=== PATIENT | female | born 1975 | race American Indian/Alaskan Native ===

== ENCOUNTER 2016-11-13 23:26 | Emergency (ER) | payer OTHER ==
[~2016-11-13] VITALS: Ht 170.2 cm; Wt 68.0 kg
[~2016-11-13 23:26] MED LIST: AVIANE1 EACH PO; BENTYL10 MG PO; CIPRO500 MG PO; CIPROFLOXACIN500 MG; CYCLOBENZAPRINE10 MG PO; DICYCLOMINE HCL10 MG PO; FERROUS GLUCON324 M1 PO; FLAGYL500 MG PO; GABAPENTIN300 MG PO; GOLYTELY SOLU4000 ML PO; HYDROCODON-ACE1 EA11 PO; HYDROCODON-ACE1 EAC8 PO; IBUPROFEN400 MG PO; IRON325 M1 PO; LOMOTIL TABLET1 EACH PO; LOPERAMIDE2 MG PO; MACROBID 100 M100 MG PO; METHOCARBAMOL750 MG PO; METRONIDAZOLE500 MG; MOTRIN800 MG PO; NORCO 10-325 T1 EACH PO; NORCO 5-325 TA1 EACH PO; ONDANSETRON HCL4 MG PO; PERCOCET 10-321 EACH PO; PERCOCET 5-3251 EACH PO; PREDNISONE20 MG PO; PROMETHAZINE HC25 M1 PO; PROZAC20 MG PO; ROBAXIN-750750 MG PO; SULFAZINE EC500 MG; TOPIRAMATE100 MG PO; VISTARIL25 MG PO; ZOFRAN ODT4 MG PO; ZOFRAN4 MG PO; [UNRECOGNIZED DRUG - OTHER]
[2016-11-14] MEDS ORDERED: TRAMADOL HCL50 MG PO (01:28)
== END 2016-11-14 01:50 | disposition home or self-care (01) ==
LOC: ED 23:26
DX: S30.0XXA Contusion of lower back and pelvis, initial encounter (principal); Z87.442 Personal history of urinary calculi; Z98.84 Bariatric surgery status; Z90.49 Acquired absence of other specified parts of digestive tract; Z88.0 Allergy status to penicillin; Z88.2 Allergy status to sulfonamides; Z98.890 Other specified postprocedural states; Z91.040 Latex allergy status; Z79.899 Other long term (current) drug therapy; V80.010A Animal-rider injured by fall from or being thrown from horse in noncollision accident, initial encounter
CPT/HCPCS: 72100; 72220; 99283

== ENCOUNTER 2017-03-03 21:42 | Emergency (ER) | payer OTHER ==
[~2017-03-03] VITALS: Ht 170.2 cm; Wt 68.0 kg
--- OUTSIDE RECORDS SUMMARY | ~2017-03-03 | XMS | Clinical Summary ---
Demographics + + + | Address | [address] | | | [place] [address] | + + + | Home Phone | | + + + | Preferred Language | Unknown | + + + | Marital Status | Single | + + + | Taoism Affiliation | PRE | + + + [...] Team Providers + +------+ + | Care Software Integrator Name | Role | Phone | + +------+ + PP | Unavailable | + +------+ + Source Comments [facility] is fully [facility] both [facility] and [facility] Allergies Not on File Current Medications Not [...]
[~2017-03-03 21:42] MED LIST changes: +TRAMADOL HCL50 MG PO
[2017-03-04] MEDS ORDERED: NORCO 5-325 TA1 EACH PO (00:56)
[2017-07-26] MEDS ORDERED: ALEVE220 M1 PO (21:26)
[2017-07-26] MEDS ORDERED: KETOROLAC TROME10 MG PO (21:29)
== END 2017-03-04 01:19 | disposition home or self-care (01) ==
LOC: ED 21:42
DX: K08.89 Other specified disorders of teeth and supporting structures (principal); Z87.442 Personal history of urinary calculi; Z90.49 Acquired absence of other specified parts of digestive tract; Z98.890 Other specified postprocedural states; Z98.84 Bariatric surgery status; Z91.040 Latex allergy status; Z88.0 Allergy status to penicillin; Z88.2 Allergy status to sulfonamides; Z88.5 Allergy status to narcotic agent
CPT/HCPCS: 99283

== ENCOUNTER 2017-03-31 07:15 | Day surgery (SDC) | payer OTHER ==
[~2017-03-31] VITALS: Ht 170.2 cm; Wt 72.6 kg
[2017-03-31] MEDS ORDERED: NUCYNTA50 MG PO (11:08)
--- NOTE | 2017-03-31 11:43 | NUR ---
03/31/17 1143 Nano Amor 1105 PT ARRIVED IN PACU VERY SLEEPY. 1115 CRYO CUFF PLACED ON R SHOULDER. PT C/O PAIN. UNABLE TO RATE. 1126 FENTANYL 25MCG GIVEN IV. 1132 PT CONTINUES TO GRIMACE AND C/O PAIN. FENTANYL 25MCG GIVEN IV. 1140 REU. NO GRIMACING NOTED.
--- NOTE | 2017-03-31 13:12 | NUR ---
[id number]: PT ARRIVES TO DS ROOM 5 VIA STRETCHER. FAMILY IN ROOM AT TIME OF REPORT. FAMILY LEFT TO RUN ERRANDS AND WILL RETURN FOR PT RIDE. LE 1210: PT PROVIDED ICE WATER, GRAPE JUICE, CRACKERS, JELLO AND PUDDING. PT TOLERATED WELL WITH NO COMPLAINTS OF NAUSEA. CALL LIGHT WITHIN REACH. LE 1245: GAVE REPORT TO AB LINTON AND PT CARE HANDED OFF AT THIS TIME.
--- NOTE | 2017-03-31 14:51 | NUR ---
LE 1304: IN TO CHECK ON PT, PT RESTING IN BED. AWAKENS EASILY. VITALS OBTAINED. ATTEMPT TO GIVE ORDERED PAIN MEDICATION, EDUCATION GIVEN. PT CONCERNED ABOUT TAKING NUCYENTA DUE TO ADVERSE REACTION TO TRAMADOL. SPOKE WITH PHARMACIST AND NITESH MCGRAW TO GIVE NUCYENTA. PT NOTIFIED, RX GIVEN. PT REQUEST PUDDING, GIVEN. EGG NILES BERG ORDERED PER PT REQUEST. PT RESTING IN BED.
--- NOTE | 2017-03-31 14:55 | NUR ---
LE 1430: PT'S MOTHER ARRIVES, RX GIVEN FOR DELIVER TO PHARMACY. IN TO CHECK ON PT, PT AWAKE WATCHING TV. VITALS OBTAINED. WHEN ASKED ABOUT PAIN, PT STATES "IT'S OKAY." SODA AND CRACKERS GIVEN, PT WATCHING TV. NO FACIAL GREIMACE OR OUTWORD SIGNS OF PAIN. NO FURTHER NEEDS AT THIS TIME. PT ADVISED THAT SHE MEETS CRITERIA FOR DISCHARGE WHENEVER SHE IS READY. CALL LIGHT WITHIN REACH.
--- NOTE | 2017-04-01 08:16 | OR ---
[facility] [address] [place], [place] [address] Signed DATE OF OPERATION: 03/31/2017 SURGEON: Marisol Aldridge MD PREOPERATIVE DIAGNOSIS: Failed rotator cuff repair with loose hardware, right shoulder. POSTOPERATIVE DIAGNOSIS: Failed rotator cuff repair with loose hardware, right shoulder. PROCEDURE PERFORMED: Removal of hardware and revision rotator cuff repair, right. HEALTH CARE RECRUITER: Monica Edwards PA-C. Monica was present in critical positioning, retraction, and wound closure. ANESTHESIA: General. BLOOD LOSS: 75 mL. LABORATORIES: Negative Gram stain and cultures were obtained. BRIEF HISTORY: Jeni is a 41-year-old female, who presented to the office with pain in her shoulder. Radiographs showed the prior anchor from her rotator cuff repair to be loose. There was a little bit of a cavity around the anchor, which had pulled back and was partially in the subacromial space. Risks and benefits of operative treatment involving removal cultures and probable repeat repair were discussed with her at length. I did not feel an MRI was necessary secondary to the fact that it would not change our approach to this problem. We did discuss a mini-open repair. Risks, benefits, and alternatives were discussed with her at length and she understood and wished to proceed. DESCRIPTION OF PROCEDURE: Once consent was obtained, she was taken to the operating room. After adequate anesthesia, she was placed in a beach-chair position. All downside pressure points well padded. The right shoulder was prepped and draped in a standard sterile fashion. The Electronically Signed By: MARISOL ALDRIDGE MD 04/01/17 0816 PATIENT NAME: JENI KILGORE OPERATIVE REPORT DATE OF : 75 PHYSICIAN: MARISOL ALDRIDGE MD REPORT #: [id number] REPORT IS CONFIDENTIAL AND NOT TO BE RELEASED WITHOUT AUTHORIZATION [facility] [address] [place], [place] [address] Signed middle portal from her prior arthroscopy was then incised longitudinally, extended to about an inch and half long. This was carried through skin and subcutaneous tissue. The median raphae were then identified and was opened longitudinally. The subdeltoid bursa was encountered. It was quite thickened and was removed. Deep cultures were taken at this point. Gram stain again was negative. The anchor was immediately visible in the wound and was removed from the bone and the FiberTape that it was attached to. The FiberTape was initially left in position to allow retraction of the remaining rotator cuff. The remaining bursa was removed using the rongeurs. We then evaluated the tear. The cuff tissue was in good shape. There was a cavity where the anchor was placed and it was felt that she may have had a little bit of an extra reaction to the absorbable implant. We then elected to go ahead with a transosseous repair of the rotator cuff. Three labral tapes were placed using a tendon grasping suture and the remaining rotator cuff tear which was about 1.5 cm long. Three drill holes were then placed in the bone and brought out subcortically distally. The inferior loop of the LabralTape was then brought out through the bone holes and the rotator cuff was reduced down to its natural position and tied sequentially from posterior to anterior. The sutures were cut. The knots were buried. We then moved the shoulder. The rotator cuff repair was quite stable. We irrigated the wound copiously and closed the deltoid using 3-0 Vicryl for the subcutaneous tissue and 3-0 Prolene for the skin. Steri-Strips were applied. The wound was dressed with Mepilex Ag dressing and Opsite. She was awakened and taken to the recovery room in satisfactory condition. All sponge, needle, and instrument counts were correct. Marisol Aldridge MD BA/SKYLAL /[id number] Electronically Signed By: MARISOL ALDRIDGE MD 04/01/17 0816 PATIENT NAME: JENI KILGORE OPERATIVE REPORT DATE OF : 75 PHYSICIAN: MARISOL ALDRIDGE MD REPORT #: [id number] REPORT IS CONFIDENTIAL AND NOT TO BE RELEASED WITHOUT AUTHORIZATION
[2017-07-26] MEDS ORDERED: ALEVE220 M1 PO (21:26)
[2017-07-26] MEDS ORDERED: KETOROLAC TROME10 MG PO (21:29)
== END 2017-03-31 15:30 | disposition home or self-care (01) ==
LOC: DS 07:15 → OPS 07:15 → DS 09:15 → OPS 15:30
PROVIDERS: Specialist
PROC: 0LQ10ZZ Repair Right Shoulder Tendon, Open Approach (ICD-10-PCS; principal; 2017-03-31 09:15)
PROC: 2W5 Placement, Anatomical Regions, Removal (ICD-10-PCS; 2017-03-31 09:15)
DX: T84.428A Displacement of other internal orthopedic devices, implants and grafts, initial encounter (principal); M75.111 Incomplete rotator cuff tear or rupture of right shoulder, not specified as traumatic; M75.51 Bursitis of right shoulder; D64.9 Anemia, unspecified; J40 Bronchitis, not specified as acute or chronic; M19.90 Unspecified osteoarthritis, unspecified site; F32.9 Major depressive disorder, single episode, unspecified; K63.9 Disease of intestine, unspecified; Z88.2 Allergy status to sulfonamides; Z91.040 Latex allergy status; Z98.890 Other specified postprocedural states
CPT/HCPCS: 01630; 36415; 64415; 76942; 84703; 87070; 87075; 87205; J0690; J1100; J2250; J2405; J2704; J2795; J3010; J7120

== ENCOUNTER 2017-04-04 05:30 | Emergency (ER) | payer OTHER, MEDICAID ==
[~2017-04-04] VITALS: Ht 170.2 cm; Wt 72.6 kg
--- OUTSIDE RECORDS SUMMARY | ~2017-04-04 | XMS | Clinical Summary ---
Demographics + + + | Address | [address] | | | [place] [address] | + + + | Home Phone | | + + + | Preferred Language | Unknown | + + + | Marital Status | Single | + + + | Synagogue Affiliation | PRE | + + + [...] | Unavailable | + + + Support +------+ +---------+ + | Name | Relationship | Address | Phone | +------+ +---------+ + ECON | Unknown | Unavailable | +------+ +---------+ + Care Team Providers + +------+ + | Care Bellstand Attendant Name | Role | Phone | + +------+ + PP | Unavailable | + +------+ + Source Comments [facility] is fully live on both [facility] and [facility]Patient.[facility] Allergies Not on File Current [...] | | | | (FLU SHOT) | 7 | | | + + + + + Results Not on filefrom Last 3 Months"
--- OUTSIDE RECORDS SUMMARY | ~2017-04-04 | XMS | Clinical Summary ---
Demographics + + + | Address | [address] | | | [place] [address] | + + + | Home Phone | | + + + | Preferred Language | Unknown | + + + | Marital Status | Single | + + + | Confucianist Affiliation | PRE | + + + [...] Team Providers + +------+ + | Care Screen Door Maker Name | Role | Phone | + +------+ + PP | Unavailable | + +------+ + Source Comments [facility] is fully live on both [facility] and [facility] InPatient.[facility] Allergies Not on File Current Medications Not [...]
[~2017-04-04 05:30] MED LIST changes: +NUCYNTA50 MG PO
[2017-07-26] MEDS ORDERED: ALEVE220 M1 PO (21:26)
[2017-07-26] MEDS ORDERED: KETOROLAC TROME10 MG PO (21:29)
== END 2017-04-04 06:22 | disposition home or self-care (01) ==
LOC: ED 05:30
DX: Z48.89 Encounter for other specified surgical aftercare (principal); Z88.0 Allergy status to penicillin; Z88.2 Allergy status to sulfonamides; Z88.5 Allergy status to narcotic agent; Z91.040 Latex allergy status
CPT/HCPCS: 99283

== ENCOUNTER → 2017-07-26 | Emergency (ER) | payer OTHER, MEDICAID ==
[~2017-07-26] VITALS: Ht 170.2 cm; Wt 72.6 kg
[~2017-07-26] MED LIST changes: +ALEVE220 M1 PO; +KETOROLAC TROME10 MG PO
== END ==
LOC: ED 21:12
DX: M25.511 Pain in right shoulder (principal); Z91.040 Latex allergy status; Z88.0 Allergy status to penicillin; Z88.2 Allergy status to sulfonamides; Z88.5 Allergy status to narcotic agent; Z98.890 Other specified postprocedural states
CPT/HCPCS: 73030; 96372; 99283; J1885

== ENCOUNTER 2017-11-22 02:08 | Emergency (ER) | payer OTHER, MEDICAID ==
[~2017-11-22] VITALS: Ht 170.2 cm; Wt 72.6 kg
--- OUTSIDE RECORDS SUMMARY | ~2017-11-22 | XMS | Clinical Summary ---
Demographics + + + | Address | [address] | | | [place] [address] | + + + | Home Phone | | + + + | Preferred Language | Unknown | + + + | Marital Status | Single | + + + | Bahai Affiliation | PRE | + + + | Race | or | + + + | Ethnic Group | Not or | + + + Author + + + | Author | [facility] | + + + | Organization | [facility] | + + + | Address | Unknown | + + + | Phone | Unavailable | + + + Support + + +---------+ + | Name | Relationship | Address | Phone | + + +---------+ + | NONE,NONE | ECON | Unknown | Unavailable | + + +---------+ + Care Team Providers + +------+ + | Care Stenographer Print Shop Name | Role | Phone | + +------+ + PP | Unavailable | + +------+ + Source Comments [facility] is fully live on both [facility] and [facility] InPatient.[facility] Allergies Not on File Current Medications Not on file Active Problems Not on file Social History + +-------+ +--------+------+ | Tobacco Use | Types | Packs/Day | Years | Date | | | | | Used | | + +-------+ +--------+------+ | Never Assessed | | | | | + +-------+ +--------+------+ + + + | Sex Assigned at | Date Recorded | | | | + + + | Not on file | | + + + Plan of Treatment + + + + + | Health Maintenance | Due Date | Last Done | Comments | + + + + + | INFLUENZA VACCINE | | | | | (FLU SHOT) | 8 | | | + + + + + Results Not on filefrom Last 3 Months Insurance + +--------+ +------+-------+---------+ | Payer | Benefi | Subscriber | Type | Phone | Address | | | t Plan | ID | | | | | | / | | | | | | | Group | | | | | + +--------+ +------+-------+---------+ | [employer] | FIRST | xxxxxxxxx | PPO | | | | | CHOICE | | | | | | | | | | | | | | HEALTH | | | | | + +--------+ +------+-------+---------+ + +--------+ +--------+ + + | Guarantor Name | Accoun | Relation to | Date | Phone | Billing Address | | | t Type | Patient | of | | | | | | | | | | + +--------+ +--------+ + + | JOHN KILGORE | Person | Self [birth year] | Home: | [address] | | | al/Fam | | 1976 | [phone] | [place] [address] | | | yenni | | | [address] | | + +--------+ +--------+ + +"
--- OUTSIDE RECORDS SUMMARY | ~2017-11-22 | XMS | Clinical Summary ---
Demographics + + + | Address | [address] | | | [place] [address] | + + + | Home Phone | | + + + | Preferred Language | Unknown | + + + | Marital Status | Single | + + + | Congregation Affiliation | PRE | + + + [...] Team Providers + +------+ + | Care Crtts Name | Role | Phone | + +------+ + PP | Unavailable | + +------+ + Source Comments NATO is fully live on both [facility] and [facility] InPatient.[facility] Allergies Not on File Current Medications Not [...] | 1976 | [phone] | [place] [address] | | | yenni | | | [address] | | + +--------+ +--------+ + +"
--- OUTSIDE RECORDS SUMMARY | ~2017-11-22 | XMS | Clinical Summary ---
Demographics + + + | Address | [address] | | | [place] [address] | + + + | Home Phone | | + + + | Preferred Language | Unknown | + + + | Marital Status | Single | + + + | Adventist Affiliation | 1076 | + + + | Race | Unknown | + + + | Ethnic Group | Unknown | + + + Author + + + | Author | [facility] | | | and [place] | + + + | Organization | [facility] | | | and [place] | + + + | Address | Unknown | + + + | Phone | Unavailable | + + + Support + + + + + | Name | Relationship | Address | Phone | + + + + + | Vladimir Gallego | ECON | [place] | | | | | [address] | | + + + + + Care Team Providers + +------+ + | Care Pipe Fitter Name | Role | Phone | + +------+ + | Jeffrey Sandoval PA-C | PP | Unavailable | + +------+ + Allergies + + + + + + | Active Allergy | Reactions | Severity | Noted | Comments | | | | | Date | | + + + + + + | Latex | Swelling | | 01/02/20 | | | | | | 12 | | + + + + + + | Penicillins | | | 01/08/20 | | | | | | 13 | | + + + + + + Current Medications + + +---------+---------+------+------+-------+ | Prescription | Sig. | Disp. | Refills | Star | End | Statu | | | | | | t | Date | s | | | | | | Date | | | + + +---------+---------+------+------+-------+ | gabapentin | Take 100 mg by mouth | | | | | Activ | | (NEURONTIN) 100 mg | 3 times daily. | | | | | e | | capsule | | | | | | | + + +---------+---------+------+------+-------+ | | Take 1 tablet by | | | | | Activ | | Hydrocodone-Acetamin | mouth Daily. | | | | | e | | ophen (VICODIN HP) | | | | | | | | 10-300 MG TABS | | | | | | | + + +---------+---------+------+------+-------+ | methocarbamol | Take 750 mg by mouth | | | | | Activ | | (ROBAXIN) 750 mg | Daily. | | | | | e | | tablet | | | | | | | + + +---------+---------+------+------+-------+ | ibuprofen | Take 600 mg by mouth | | | | | Activ | | (ADVIL,MOTRIN) 600 | every 6 hours as | | | | | e | | MG tablet | needed. | | | | | | + + +---------+---------+------+------+-------+ | topiramate | Take 25 mg by mouth | | | | | Activ | | (TOPAMAX) 25 MG | Daily. | | | | | e | | capsule | | | | | | | + + +---------+---------+------+------+-------+ | ferrous gluconate | Take 324 mg by mouth | | | | | Activ | | (FERGON) 324 mg | 2 times daily (with | | | | | e | | tablet | breakfast & | | | | | | | | dinner). | | | | | | + + +---------+---------+------+------+-------+ | hydrOXYzine | Take 25 mg by mouth | | | | | Activ | | hydrochloride | every 6 hours as | | | | | e | | (ATARAX) 25 mg | needed. | | | | | | | tablet | | | | | | | + + +---------+---------+------+------+-------+ | FLUoxetine | Take 20 mg by mouth | | | | | Activ | | (PROZAC) 20 mg | Daily. | | | | | e | | capsule | | | | | | | + + +---------+---------+------+------+-------+ | cyclobenzaprine | Take 10 mg by mouth | | | | | Activ | | (FLEXERIL) 10 mg | 3 times daily as | | | | | e | | tablet | needed. | | | | | | + + +---------+---------+------+------+-------+ | cholestyramine | Take 1 packet by | 240 g | 12 | 11/0 | | Activ | | (QUESTRAN) 4 GM/DOSE | mouth 2 times daily. | | | 7/20 | | e | | powder | Can take with | | | 13 | | | | | metamucil if causes | | | | | | | | constipation. | | | | | | + + +---------+---------+------+------+-------+ | | Take 1 tablet by | | | | | Activ | | levonorgestrel-ethin | mouth Daily. | | | | | e | | yl estradiol | | | | | | | | (AVIANE) 0.1-20 | | | | | | | | MG-MCG per tablet | | | | | | | + + +---------+---------+------+------+-------+ Active Problems + + + | Problem | Noted Date | + + + | Low back pain | 01/02/2012 | + + + | DDD (degenerative disc disease), lumbar | 01/02/2012 | + + + | Numbness and tingling of left leg | 01/02/2012 | + + + | Facet arthritis of lumbar region (mostly at L4-L5 and L5-S1) | 01/02/2012 | + + + | Obesity (BMI 39.2) | 01/02/2012 | + + + Family History + + +------+ + | Medical History | Relation | Name | Comments | + + +------+ + | High blood pressure | Father | | | + + +------+ + | Stroke | Mother | | | + + +------+ + + +------+--------+ + | Relation | Name | Status | Comments | + +------+--------+ + | Father | | Alive | | + +------+--------+ + | Mother | | Alive | | + +------+--------+ + Social History + +-------+ +--------+------+ | Tobacco Use | Types | Packs/Day | Years | Date | | | | | Used | | + +-------+ +--------+------+ | Never Smoker | | | | | + +-------+ +--------+------+ + + + | Sex Assigned at | Date Recorded | | | | + + + | Not on file | | + + + Last Filed Vital Signs + + + + | Vital Sign | Reading | Time Taken | + + + + | Blood Pressure | 124/72 | 04/12/20131307 PST | + + + + | Pulse | 60 | 04/12/20138 PST | + + + + | Temperature | 36.5 C (97.7 F) | 04/12/20131307 PST | + + + + | Respiratory Rate | 16 | 04/12/20131307 PST | + + + + | Oxygen Saturation | - | - | + + + + | Inhaled Oxygen | - | - | | Concentration | | | + + + + | Weight | 97.5 kg (215 lb) | 04/12/20131307 PST | + + + + | Height | 170.2 cm (5' 7") | 01/07/20131128 PST | + + + + | Body Mass Index | 33.67 | 04/12/2013 1308 PST | + + + + Plan of Treatment + + + + + | Health Maintenance | Due Date | Last Done | Comments | + + + + + | Vaccine: | | | | | Dtap/Tdap/Td (1 - | 5 | | | | Tdap) | | | | + + + + + | Cervical Cancer | | | | | Screening (Pap) | 6 | | | + + + + + | Vaccine: Influenza | | | | | (#1) | 8 | | | + + + + + Results Not on filefrom Last 3 Months Insurance + +--------+ +--------+-------+---------+ | Payer | Benefi | Subscriber | Type | Phone | Address | | | t Plan | ID | | | | | | / | | | | | | | Group | | | | | + +--------+ +--------+-------+---------+ | [facility] | IHS | [id number] | Indemn | | | | SERVICE | YELLOW | | ity | | | | | [place] | | | | | + +--------+ +--------+-------+---------+ + +--------+ +--------+ + + | Guarantor Name | Accoun | Relation to | Date | Phone | Billing Address | | | t Type | Patient | of | | | | | | | | | | + +--------+ +--------+ + + | KILGORE,JENI C | Person | Self [birth year] | Work: | [id number] | | | ricki/Benja | | 1975 | [phone] | [place] [address] | | | yenni | | | [address] Home: | | | | | | | | | | | | | | [phone] | | | | | | | [address] | | + +--------+ +--------+ + +
--- OUTSIDE RECORDS SUMMARY | ~2017-11-22 | XMS | Clinical Summary ---
Demographics + + + | Address | [address] | | | [place] [address] | + + + | Home Phone | | + + + | Preferred Language | Unknown | + + + | Marital Status | Single | + + + | Amish Affiliation | 1076 | + + + | Race | Unknown | + + + | Ethnic Group | Unknown | + + + Author + + + | Author | [facility] | | | and [place] | + + + | Organization | [facility] | | | and [place] | + + + | Address | Unknown | + + + | Phone | Unavailable | + + + Support + + + + + | Name | Relationship | Address | Phone | + + + + + | Vladimir Gallego | ECON | [place] | | | | | [address] | | + + + + + Care Team Providers + +------+ + | Care Creative Services Producer Name | Role | Phone | + [...] | | | + +--------+ +--------+-------+---------+ | [facility] | IHS | [id number] | Indemn | | | | SERVICE [...] | Self | [birth year] | Work: | [address] | | | ricki/Benja | | 1975 | [phone] | [place] [address] | | | yenni | | | [phone] Home: | | | | | | | | | | | | | | [phone] | | | | | | | [address] | | + +--------+ +--------+ + +
[2017-11-22] MEDS ORDERED: PREDNISONE20 MG PO (03:30)
[2017-11-22] MEDS ORDERED: VALACYCLOVIR1000 MG PO (03:30)
== END 2017-11-22 03:38 | disposition home or self-care (01) ==
LOC: ED 02:08
DX: G51.0 Bell's palsy (principal); D64.9 Anemia, unspecified; Z91.040 Latex allergy status; Z88.0 Allergy status to penicillin; Z88.2 Allergy status to sulfonamides; Z88.5 Allergy status to narcotic agent
CPT/HCPCS: 70450; 99284; J7512

== ENCOUNTER 2018-05-17 19:26 | Emergency (ER) | payer OTHER ==
[~2018-05-17] VITALS: Ht 170.2 cm; Wt 81.2 kg
--- OUTSIDE RECORDS SUMMARY | ~2018-05-17 | XMS | Clinical Summary ---
Demographics + + + | Address | [address] | | | [place] [address] | + + + | Home Phone | | + + + | Preferred Language | Unknown | + + + | Marital Status | Single | + + + | Yazidism Affiliation | PRE | + + + [...] Team Providers + +------+ + | Care Provider Enrollment Specialist Name | Role | Phone | + +------+ + PP | Unavailable | + +------+ + Source Comments NATO is fully live on both [facility] and [facility] InPatient.[facility] Allergies Not on File Current Medications [...] | + + + + + | Influenza (Flu) | | | | | vaccination (#1) | 8 | | | + + [...] | 1976 | [phone] | [place] [address] | | | yenni | | | [address] | | + +--------+ +--------+ + +"
--- OUTSIDE RECORDS SUMMARY | ~2018-05-17 | XMS | Clinical Summary ---
Demographics + + + | Address | [address] | | | [place] [address] | + + + | Home Phone | | + + + | Preferred Language | Unknown | + + + | Marital Status | Single | + + + | Pentecostalism Affiliation | PRE | + + + [...] Team Providers + +------+ + | Care Inside Sales Recruiter Name | Role | Phone | + +------+ + PP | Unavailable | + +------+ + Source Comments NATO is fully live on both [facility] and [facility] Allergies Not on File [...] | 1976 | [phone] | [place] [address] | | | yenni | | | [address] | | + +--------+ +--------+ + +"
--- OUTSIDE RECORDS SUMMARY | ~2018-05-17 | XMS | Clinical Summary ---
Demographics + + + | Address | [address] | | | [place] [address] | + + + | Home Phone | | + + + | Preferred Language | Unknown | + + + | Marital Status | Unknown | + + + | Episcopalian Affiliation | 1076 | + + + | Race | Unknown | + + + | Ethnic Group | Unknown | + + + Author + + + | Author | [facility] | | | and [place] | + + + | Organization | [facility] | | | and [place] | + + + | Address | Unknown | + + + | Phone | Unavailable | + + + Support + + +---------+ + | Name | Relationship | Address | Phone | + + +---------+ + | Linda Gimenez | ECON | Unknown | | + + +---------+ + Care Team Providers + +------+ + | Care Service Vehicle Operator Name | Role | Phone | + [...] + + + + + + | Sulfa Antibiotics | | | 11/24/19 | | | | | | 18 | | + + + + + + | Tramadol | | | 11/24/19 | | | | | | 18 | | + + + + + [...] | | + +-------+ +--------+------+ + + +---------+ + | Alcohol Use | Drinks/We | oz/Week | Comments | | | ek | | | + + +---------+ + | Yes | | | | + + +---------+ + + + + | Sex Assigned at | Date Recorded | | | | + + + | Not on file | | + + + Last Filed Vital Signs + + + + | Vital Sign | Reading | Time Taken | + + + + | Blood Pressure | 110/71 | 11/23/2017313 PDT | + + + + | Pulse | 73 | 11/23/2017313 PDT | + + + + | Temperature | 37 C (98.6 F) | 11/23/201756 PDT | + + + + | Respiratory Rate | 16 | 11/23/2017249 PDT | + + + + | Oxygen Saturation | 99% | 11/23/2017313 PDT | + + + + | Inhaled Oxygen | - | - | | Concentration | | | + + + + | Weight | 72.6 kg (160 lb) | 11/23/201756 PDT | + + + + | Height | 170.2 cm (5' 7") | 11/23/201756 PDT | + + + + | Body Mass Index | 25.06 | 11/23/201756 PDT | + + + + Plan of [...] | | | + +--------+ +--------+-------+---------+ | [facility] | IHS | [id number] | Indemn | | | | SERVICE [...] | + +--------+ +--------+ + + | JENI KILGORE | Person | Self | [birth year] | Work: | [address] | | | al/Fam | | 1976 | [phone] | [place] [address] | | | yenni | | | [address]: | | | | | | | | | | | | | | [phone] | | | | | | | [address] | | + +--------+ +--------+ + +
--- OUTSIDE RECORDS SUMMARY | ~2018-05-17 | XMS | Clinical Summary ---
Demographics + + + | Address | [address] | | | [place] [address] | + + + | Home Phone | | + + + | Preferred Language | Unknown | + + + | Marital Status | Unknown | + + + | Restoration Affiliation | 1076 | + + + | Race | Unknown | + + + | Ethnic Group | Unknown | + + + Author + + + | Author | [facility] | | | and [place] | + + + | Organization | [facility] | | | and [place] | [...] Team Providers + +------+ + | Care Lacing Cutter Name | Role | Phone | + [...] | | | + +--------+ +--------+-------+---------+ | [facility] | IHS | [id number] | Indemn | | | | SERVICE [...] | | al/Fam | | 1976 | [phone] | [place] [address] | | | yenni | | | [address]: | | | | | | | | | | | | | [phone] | | | | | | | [address] | | + +--------+ +--------+ + +
[~2018-05-17 19:26] MED LIST changes: +VALACYCLOVIR1000 MG PO
[2018-05-17] MEDS ORDERED: DICLOFENAC SODI75 MG PO (21:00)
[2018-05-17] MEDS ORDERED: CYCLOBENZAPRINE10 MG PO (21:00)
== END 2018-05-17 21:14 | disposition home or self-care (01) ==
LOC: ED 19:26
DX: S39.012A Strain of muscle, fascia and tendon of lower back, initial encounter (principal); D64.9 Anemia, unspecified; Z87.442 Personal history of urinary calculi; Z87.891 Personal history of nicotine dependence; Z90.49 Acquired absence of other specified parts of digestive tract; Z91.040 Latex allergy status; Z88.0 Allergy status to penicillin; Z88.2 Allergy status to sulfonamides; Z88.5 Allergy status to narcotic agent; X58.XXXA Exposure to other specified factors, initial encounter
CPT/HCPCS: 99283

== ENCOUNTER 2019-04-28 19:18 | Emergency (ER) | payer OTHER ==
[~2019-04-28] VITALS: Ht 172.7 cm; Wt 78.0 kg
[~2019-04-28 19:18] MED LIST changes: +DICLOFENAC SODI75 MG PO
[2019-04-28] MEDS ORDERED: GUAIFENESIN AC473 ML PO (22:22)
== END 2019-04-28 22:40 | disposition home or self-care (01) ==
LOC: ED 19:18
DX: J10.1 Influenza due to other identified influenza virus with other respiratory manifestations (principal); J20.9 Acute bronchitis, unspecified; D64.9 Anemia, unspecified; Z88.0 Allergy status to penicillin; Z91.040 Latex allergy status; Z88.2 Allergy status to sulfonamides; Z88.5 Allergy status to narcotic agent
CPT/HCPCS: 71046; 80053; 81001; 83690; 85025; 87502; 96361; 96374; 99284-25; J2405; J7030

== ENCOUNTER 2020-08-12 17:14 | Emergency (ER) | payer OTHER ==
[~2020-08-12] VITALS: Ht 172.7 cm; Wt 79.4 kg
[~2020-08-12 17:14] MED LIST changes: +GUAIFENESIN AC473 ML PO
== END 2020-08-12 18:27 | disposition home or self-care (01) ==
LOC: ED 17:14
DX: S50.11XA Contusion of right forearm, initial encounter (principal); X58.XXXA Exposure to other specified factors, initial encounter; D64.9 Anemia, unspecified; Z88.0 Allergy status to penicillin; Z88.2 Allergy status to sulfonamides; Z88.5 Allergy status to narcotic agent; Z91.010 Allergy to peanuts; Z79.899 Other long term (current) drug therapy
CPT/HCPCS: 99283

== ENCOUNTER 2021-08-01 18:43 | Emergency (ER) | payer OTHER ==
[~2021-08-01] VITALS: Ht 172.7 cm; Wt 79.4 kg
[2021-08-01] MEDS ORDERED: CLINDAMYCIN HC300 MG PO (19:51)
[2021-08-01] MEDS ORDERED: CYCLOBENZAPRINE10 MG PO (20:50)
== END 2021-08-01 21:01 | disposition home or self-care (01) ==
LOC: ED 18:43
DX: M54.31 Sciatica, right side (principal); Z88.5 Allergy status to narcotic agent; Z88.0 Allergy status to penicillin; Z88.2 Allergy status to sulfonamides; Z91.040 Latex allergy status
CPT/HCPCS: 81001; 99283